=== PATIENT | male | born 1975 | race Caucasian/White ===

== ENCOUNTER → 2016-11-10 | Outpatient (CLI) | payer OTHER ==
--- NOTE | 2016-11-10 08:40 | US ---
EXAMINATION TYPE: US pelvic limited DATE OF EXAM: 11/10/2016 COMPARISON: NONE CLINICAL HISTORY: Abdominal pain R10.84. EXAM MEASUREMENTS: Post Void Residual Volume: 33 mL Color Doppler performed to assess ureteral jets. Bilateral Jets seen: Yes Normal Post Void Residual (less than 50ml): Yes Normal appearing bladder. IMPRESSION: 1. No abnormality noted.
--- NOTE | 2016-11-10 08:42 | US ---
EXAMINATION TYPE: US abdomen complete DATE OF EXAM: 11/10/2016 COMPARISON: NONE CLINICAL HISTORY: Abdominal pain R10.84. EXAM MEASUREMENTS: Liver Length: 13.1 cm Gallbladder Wall: 0.3 cm CBD: 0.3 cm Spleen: 12.9 cm Right Kidney: 12.1 x 5.3 x 5.3 cm Left Kidney: 11.8 x 5.6 x 5.6 cm Extensive midline bowel gas. Pancreas: Obscured by bowel gas Liver: portions obscured by extensive overlying bowel gas Gallbladder: wnl Evidence for sonographic Courtney's sign: No CBD: wnl Spleen: wnl Right Kidney: echogenic foci, possible kidney stone measuring 0.4 x 0.4 x 0.4cm Left Kidney: echogenic foci, possible kidney stone measuring 0.4 x 0.4 x 0.5cm Upper IVC: wnl Abd Aorta: Of normal caliber. Mild atherosclerotic changes. IMPRESSION: 1. Findings suggest probable tiny bilateral renal calculus with no evidence of obstruction. Correlate with CT scan as clinically warranted. 2. Limited pancreas and liver due to bowel gas.
== END | disposition home or self-care (01) ==
LOC: RADUSWWP 07:30
PROVIDERS: ATTEND Family Medicine
DX: R10.84 Generalized abdominal pain (principal); R39.15 Urgency of urination; R11.0 Nausea
CPT/HCPCS: 76700; 76857

== ENCOUNTER 2020-02-16 21:16 | Emergency (ER) | payer OTHER ==
[2020-02-16] MEDS ORDERED: SODIUM CHLORIDE 0.9% 1,000 ML IV STA (21:27)
--- NOTE | 2020-02-16 21:45 | ED ---
Back Pain HPI - General Chief Complaint: Back Pain/Injury Stated Complaint: Poss Kidney Stone Time Seen by Provider: 02/16/20 21:27 Source: patient Limitations: no limitations - History of Present Illness Initial Comments: 44-year-old male with history of kidney stones presenting to the emergency department with a chief complaint of back pain. Patient reports this started earlier today with a dull pain which gradually transitioned into a sharp pain. Patient reports it was exacerbated with any movement. He states he went to an urgent care earlier today and he was found to have hematuria. Patient reports about 15 minutes prior to arrival, the pain has subsided and now he is completely symptomatic. Patient states was in the right lower back region with some radiation to the front. Patient states this pain felt like a kidney stone pain that he had about 10 years ago. Denies any night sweats fevers or chills. No chest pain shortness of breath. Denies penile discharge, testicular swelling or tenderness. - Related Data Allergies Allergy/AdvReac Type Severity Reaction Status Date / Time No Known Allergies Allergy Verified 02/16/20 21:17 Review of Systems ROS Statement: Those systems with pertinent positive or pertinent negative responses have been documented in the HPI. ROS Other: All systems not noted in ROS Statement are negative. Past Medical History Past Medical History: No Reported History History of Any Multi-Drug Resistant Organisms: None Reported Past Surgical History: No Surgical Hx Reported Past Psychological History: No Psychological Hx Reported Smoking Status: Never smoker Past Alcohol Use History: None Reported Past Drug Use History: None Reported General Exam Limitations: no limitations General appearance: alert, in no apparent distress Head exam: Present: atraumatic, normocephalic, normal inspection Eye exam: Present: normal appearance, PERRL, EOMI Pupils: Present: normal accommodation ENT exam: Present: normal exam, normal oropharynx, mucous membranes moist, TM's normal bilaterally, normal external ear exam Neck exam: Present: normal inspection, full ROM. Absent: tenderness, lymphadenopathy Respiratory exam: Present: normal lung sounds bilaterally. Absent: respiratory distress, wheezes, rales Cardiovascular Exam: Present: regular rate, normal rhythm, normal heart sounds. Absent: systolic murmur, diastolic murmur GI/Abdominal exam: Present: soft. Absent: distended, tenderness, guarding, rebound, rigid Extremities exam: Present: normal inspection, full ROM, normal capillary refill. Absent: tenderness, pedal edema, joint swelling, calf tenderness Back exam: Present: normal inspection, full ROM. Absent: tenderness, CVA tenderness (R), CVA tenderness (L), muscle spasm, paraspinal tenderness, vertebral tenderness Neurological exam: Present: alert, oriented X3, normal gait Psychiatric exam: Present: normal affect, normal mood Skin exam: Present: warm, dry, intact, normal color Course Vital Signs 02/16/20 02/16/20 21:18 22:21 Temperature 98 F 98.4 F Pulse Rate 71 65 Respiratory 18 16 Rate Blood Pressure 145/91 119/69 O2 Sat by Pulse 97 96 Oximetry Medical Decision Making - Medical Decision Making 44-year-old male presenting to the emergency department chief complaint of a kidney stone. Patient has history of kidney stone. Patient did not have symptoms on initial evaluation. No CVA tenderness either. CBC revealed mild leukocytosis of 12 K. CMP is unremarkable. UA did show elevated red blood cells and blood in the urine. No signs of urinary tract infection. Patient with a past the kidney stone prior to ED arrival. Patient continues to be symptomatically emergency department. Patient was offered imaging, he declined. Patient advised to follow-up with a urologist if any symptoms occur. He was also advised to alternate between Tylenol and Motrin and drink plenty of fluids. Strict return parameters were thoroughly discussed with patient is understanding and agreeable. Case discussed with physician. - Lab Data Result diagrams: 02/16/20 21:30 02/16/20 21:30 Lab Results 02/16/20 02/16/20 02/16/20 Range/Units 21:30 21:30 21:30 WBC 12.0 H (3.8-10.6) k/uL RBC 4.84 (4.30-5.90) m/uL Hgb 14.7 (13.0-17.5) gm/dL Hct 42.9 (39.0-53.0) % MCV 88.7 (80.0-100.0) fL MCH 30.5 (25.0-35.0) pg MCHC 34.4 (31.0-37.0) g/dL RDW 12.3 (11.5-15.5) % Plt Count 253 (150-450) k/uL MPV 6.6 Neutrophils % 90 % Lymphocytes % 6 % Monocytes % 3 % Eosinophils % 1 % Basophils % 0 % Neutrophils # 10.8 H (1.3-7.7) k/uL Lymphocytes # 0.7 L (1.0-4.8) k/uL Monocytes # 0.4 (0-1.0) k/uL Eosinophils # 0.1 (0-0.7) k/uL Basophils # 0.0 (0-0.2) k/uL Sodium 139 (137-145) mmol/L Potassium 3.9 (3.5-5.1) mmol/L Chloride 104 (98-107) mmol/L Carbon Dioxide 27 (22-30) mmol/L Anion Gap 8 mmol/L BUN 15 (9-20) mg/dL Creatinine 0.97 (0.66-1.25) mg/dL Est GFR (CKD-EPI)AfAm >90 (>60 ml/min/1.73 sqM) Est GFR (CKD-EPI)NonAf >90 (>60 ml/min/1.73 sqM) Glucose 128 H (74-99) mg/dL Calcium 9.8 (8.4-10.2) mg/dL Total Bilirubin 0.8 (0.2-1.3) mg/dL AST 27 (17-59) U/L ALT 24 (4-49) U/L Alkaline Phosphatase 65 (38-126) U/L Total Protein 8.1 (6.3-8.2) g/dL Albumin 4.8 (3.5-5.0) g/dL Urine Color Light Red Urine Appearance Cloudy (Clear) Urine pH 5.5 (5.0-8.0) Ur Specific [place] 1.027 (1.001-1.035) Urine Protein 1+ H (Negative) Urine Glucose (UA) Negative (Negative) Urine Ketones Negative (Negative) Urine Blood Large H (Negative) Urine Nitrite Negative (Negative) Urine Bilirubin Negative (Negative) Urine Urobilinogen <2.0 (<2.0) mg/dL Ur Leukocyte Esterase Negative (Negative) Urine RBC >182 H (0-5) /hpf Urine WBC 6 H (0-5) /hpf Ur Squamous Epith Cells <1 (0-4) /hpf Urine Bacteria Rare H (None) /hpf Urine Mucus Many H (None) /hpf Urine Yeast (Budding) Many H (None) /hpf Disposition Clinical Impression: Renal stone, Hematuria Disposition: HOME SELF-CARE Condition: Stable Instructions (If sedation given, give patient instructions): Kidney Stones (ED) Additional Instructions: Drink plenty of fluids. Follow-up with urologist. Alternate between Tylenol and Motrin for pain control. Return to emergency department if symptoms worsen. Is patient prescribed a controlled substance at d/c from ED?: No Referrals: Delia Covarrubias III, MD [Primary Care Provider] - 1-2 days Ronan Turcios MD [STAFF PHYSICIAN] - 1-2 days Time of Disposition: 22:58
[2020-02-16 21:55] LABS: Basophils % (A) 0 %; Eosinophils # (A) 0.1 k/uL (0-0.7); Eosinophils % (A) 1 %; HCT 42.9 % (39.0-53.0); HGB 14.7 gm/dL (13.0-17.5); Lymphocytes # (A) 0.7 k/uL (1.0-4.8); Lymphocytes % (A) 6 %; MCH 30.5 pg (25.0-35.0); MCHC 34.4 g/dL (31.0-37.0); MCV 88.7 fL (80.0-100.0); Mean Platelet Volume 6.6; Monocytes # (A) 0.4 k/uL (0-1.0); Monocytes % (A) 3 %; Neutrophils # (A) 10.8 k/uL (1.3-7.7); Neutrophils % (A) 90 %; Platelet Count 253 k/uL (150-450); RBC 4.84 m/uL (4.30-5.90); RDW 12.3 % (11.5-15.5)
[2020-02-16 22:19] LABS: ALT 24 U/L (4-49); AST 27 U/L (17-59); African American GFR (CKD) >90 (>60 ml/min/1.73 sqM); Albumin 4.8 g/dL (3.5-5.0); Alkaline Phosphatase 65 U/L (38-126); Anion Gap 8 mmol/L; Blood Urea Nitrogen 15 mg/dL (9-20); Calcium 9.8 mg/dL (8.4-10.2); Carbon Dioxide 27 mmol/L (22-30); Chloride 104 mmol/L (98-107); Glucose 128 mg/dL (74-99); Non-African American GFR(CKD) >90 (>60 ml/min/1.73 sqM); Potassium 3.9 mmol/L (3.5-5.1); Sodium 139 mmol/L (137-145); Total Bilirubin 0.8 mg/dL (0.2-1.3); Total Protein 8.1 g/dL (6.3-8.2)
[2020-02-16 22:55] LABS: Appearance,Urine Cloudy (Clear); Bacteria,Urine Rare /hpf; Bilirubin,Urine Negative (Negative); Blood,Urine Large (Negative); Budding Yeast,Urine Many /hpf; Color,Urine Light Red; Glucose,Urine (UA) Negative (Negative); Ketones,Urine Negative (Negative); Leukocyte Esterase,Urine Negative (Negative); Mucus,Urine Many /hpf; Nitrite,Urine Negative (Negative); PH, Urine 5.5 (5.0-8.0); Protein,Urine 1+ (Negative); RBC,Urine >182 /hpf (0-5); Specific Gravity,Urine 1.027 (1.001-1.035); Squamous Epithelial Cell,Urine <1 /hpf (0-4); Urobilinogen,Urine <2.0 mg/dL (<2.0); WBC,Urine 6 /hpf (0-5)
[2020-02-16 23:14] VITALS: BP 122/71; PULSE 68; RESP 18; TEMP 97.9
== END 2020-02-16 23:10 | disposition home or self-care (01) ==
LOC: EC 21:16
DX: N20.0 Calculus of kidney (principal); R31.9 Hematuria, unspecified; D72.829 Elevated white blood cell count, unspecified
CPT/HCPCS: 36415; 80053; 81001; 85025; 96360; 99283

== ENCOUNTER → 2020-10-13 | Outpatient (CLI) | payer OTHER ==
--- NOTE | 2020-10-13 14:59 | XR ---
EXAMINATION TYPE: XR shoulder complete LT DATE OF EXAM: 10/13/2020 Comparison: None Clinical History: 45-year-old male M25.512 Findings: AC joint appears intact. Subacromial space. No tendinous or bursal calcifications. Sclerotic focus al gabriela the lateral proximal humeral shaft likely a bone island. No acute fracture, subluxation, dislocat ion. Visualized left hemithorax is clear. Impression: No acute osseous abnormality seen.
== END | disposition home or self-care (01) ==
LOC: RADXRMAIN 14:36
PROVIDERS: ATTEND Nurse Practitioner Family
DX: M25.512 Pain in left shoulder (principal)

== ENCOUNTER 2021-02-12 07:10 | Emergency (ER) | payer OTHER ==
--- NOTE | 2021-02-12 07:45 | ED ---
General Adult HPI - General Chief complaint: Upper Respiratory Infection Stated complaint: Covid test Time Seen by Provider: 02/12/21 07:13 Source: patient, RN notes reviewed, old records reviewed Mode of arrival: ambulatory Limitations: no limitations - History of Present Illness Initial comments: 45-year-old male presenting with dry cough, cold that exposure. Patient is not vaccinated. He's had some myalgias and subjective fever and chills. No significant vomiting or diarrhea. Patient has had a known contact in his over the past 2 weeks who is recovering from coronavirus. The patient has been dealing with some chronic issues regarding fatigue and has been following both with his primary care physician in rheumatology. - Related Data Allergies Allergy/AdvReac Type Severity Reaction Status Date / Time No Known Allergies Allergy Verified 02/12/21 07:16 Review of Systems ROS Statement: Those systems with pertinent positive or pertinent negative responses have been documented in the HPI. ROS Other: All systems not noted in ROS Statement are negative. Past Medical History Past Medical History: Fibromyalgia History of Any Multi-Drug Resistant Organisms: None Reported Past Surgical History: No Surgical Hx Reported Past Psychological History: Anxiety Smoking Status: Never smoker Past Alcohol Use History: None Reported Past Drug Use History: None Reported General Exam Limitations: no limitations General appearance: alert, in no apparent distress Head exam: Present: atraumatic, normocephalic Eye exam: Present: normal appearance, PERRL ENT exam: Present: normal exam Neck exam: Present: normal inspection. Absent: tenderness, meningismus Respiratory exam: Present: normal lung sounds bilaterally. Absent: respiratory distress, wheezes Cardiovascular Exam: Present: regular rate, normal rhythm GI/Abdominal exam: Present: soft. Absent: distended, tenderness, guarding Extremities exam: Present: normal inspection, normal capillary refill. Absent: pedal edema Neurological exam: Present: alert, oriented X3, CN II-XII intact. Absent: motor sensory deficit Psychiatric exam: Present: normal affect, normal mood Skin exam: Present: warm, dry, intact. Absent: cyanosis, diaphoretic Course Vital Signs 02/12/21 07:13 Temperature 98.5 F Pulse Rate 100 Respiratory 20 Rate Blood Pressure 133/69 O2 Sat by Pulse 98 Oximetry Medical Decision Making - Medical Decision Making Patient does test positive for coronavirus, transfuse monoclonal's in the emergency department. Return parameters discussed. Patient will also take vitamin D, vitamin C, and zinc at home. He will follow with his primary care physician. He will quarantine. - Lab Data Lab Results 02/12/21 Range/Units 07:18 Coronavirus (PCR) Detected A (Not Detectd) Disposition Clinical Impression: COVID-19 Disposition: HOME SELF-CARE Condition: Good Instructions (If sedation given, give patient instructions): Coronavirus Disease 2019 (COVID-19) Additional Instructions: Please quarantined for the next 10 days. Please take vitamin C, vitamin D, and zinc. Is patient prescribed a controlled substance at d/c from ED?: No Referrals: Delia Covarrubias III, MD [Primary Care Provider] - 1-2 days Time of Disposition: 09:35
[2021-02-12] MEDS ORDERED: CASIRIVIMAB (REGN10933) (EUA) 600 MG, IMDEVIMAB (REGN10987) (EUA) 600 MG in SODIUM CHLO... IVPB ONE (09:00)
[2021-02-12] MEDS ORDERED: SODIUM CHLORIDE 0.9% 50 ML IVPB ONE (09:00)
[2021-02-12 11:15] VITALS: BP 117/72; PULSE 82; RESP 17; TEMP 99.1
== END 2021-02-12 11:30 | disposition home or self-care (01) ==
LOC: EC 07:10
DX: U07.1 COVID-19 (principal)
CPT/HCPCS: 87635; 99283; Q0243

== ENCOUNTER → 2021-02-24 | Outpatient (CLI) | payer OTHER ==
[2021-02-24 18:38] LABS: Basophils # (A) 0.05 X 10*3/uL (0.00-0.10); Basophils % (A) 0.7 %; Eosinophils # (A) 0.08 X 10*3/uL (0.04-0.35); Eosinophils % (A) 1.2 %; HCT 43.6 % (39.6-50.0); HGB 14.7 g/dL (13.0-17.0); Lymphocytes # (A) 1.54 X 10*3/uL (0.90-5.00); Lymphocytes % (A) 22.6 %; MCH 30.3 pg (27.0-32.0); MCHC 33.7 g/dL (32.0-37.0); MCV 89.9 fL (80.0-97.0); Mean Platelet Volume 9.8 fL (9.5-12.2); Monocytes # (A) 0.46 X 10*3/uL (0.20-1.00); Monocytes % (A) 6.7 %; Neutrophils # (A) 4.67 X 10*3/uL (1.80-7.70); Neutrophils % (A) 68.5 %; Platelet Count 261 X 10*3/uL (140-440); RBC 4.85 X 10*6/uL (4.40-5.60); RDW 12.6 % (11.5-14.5); WBC 6.82 X 10*3/uL (4.50-10.00)
[2021-02-24 19:34] LABS: African American GFR (CKD) 122.1 (60.0-200.0); Albumin 4.8 g/dL (3.8-4.9); Albumin/Globulin Ratio 2.02 (1.60-3.17); Anion Gap 11.9 mmol/L (10.00-18.00); BUN/Creat Ratio 16.39 Ratio (12.00-20.00); Blood Urea Nitrogen 13.9 mg/dL (9.0-27.0); Calcium 9.9 mg/dL (8.7-10.3); Carbon Dioxide 25.7 mmol/L (20.0-27.5); Globulin 2.4 g/dL (1.6-3.3); Non-African American GFR(CKD) 105.3 (60.0-200.0); Potassium 4.1 mmol/L (3.5-5.5); T4, Free (Free Thyroxine) 1.65 ng/dL (0.800-1.800); Total Protein 7.2 g/dL (6.2-8.2)
== END | disposition home or self-care (01) ==
LOC: LABWHC1 13:10
PROVIDERS: ATTEND Family Medicine
DX: R53.83 Other fatigue (principal)
CPT/HCPCS: 36415; 80053; 82550; 84439; 84443; 84481; 85025

== ENCOUNTER → 2021-03-28 | Outpatient (CLI) | payer OTHER ==
[2021-03-28 11:33] LABS: HCT 45.7 % (39.6-50.0); HGB 14.6 g/dL (13.0-17.0); MCH 29.4 pg (27.0-32.0); MCHC 31.9 g/dL (32.0-37.0); MCV 92.1 fL (80.0-97.0); Mean Platelet Volume 9.6 fL (9.5-12.2); Platelet Count 247 X 10*3/uL (140-440); RBC 4.96 X 10*6/uL (4.40-5.60); RDW 13.1 % (11.5-14.5); WBC 5.19 X 10*3/uL (4.50-10.00)
[2021-03-28 12:25] LABS: African American GFR (CKD) 104.9 (60.0-200.0); Albumin 4.9 g/dL (3.8-4.9); Albumin/Globulin Ratio 2.04 (1.60-3.17); Anion Gap 13.7 mmol/L (10.00-18.00); Calcium 9.7 mg/dL (8.7-10.3); Carbon Dioxide 24.3 mmol/L (20.0-27.5); Globulin 2.4 g/dL (1.6-3.3); Luteinizing Hormone 6.6 mIU/mL; Non-African American GFR(CKD) 90.5 (60.0-200.0); Prolactin 12.7 ng/mL (2.100-17.700); Prostate Specific Antigen 0.4 ng/mL (0.00-2.50); T4, Free (Free Thyroxine) 1.55 ng/dL (0.800-1.800); Total Protein 7.3 g/dL (6.2-8.2)
[2021-03-28 15:41] LABS: ACTH 22.6 pg/mL (0.00-45.99)
== END | disposition home or self-care (01) ==
LOC: LABWHC1 08:14
PROVIDERS: ATTEND Internal Medicine Endocrinology, Diabetes & Metabolism
DX: E29.1 Testicular hypofunction (principal); R53.83 Other fatigue
CPT/HCPCS: 36415; 80053; 82024; 82533; 83001; 83002; 84146; 84153; 84403; 84439; 84443; 84480; 85027